=== PATIENT | male | born 1980 | race Two or more races ===

== ENCOUNTER 2019-09-24 12:12 | Emergency (ER) | payer OTHER ==
[~2019-09-24] VITALS: Ht 170.2 cm; Wt 88.5 kg
--- NOTE | 2019-09-24 12:29 | NUR ---
PT IS A/OX4, PRESENTS TO THE ER C/O PALPITATIONS THAT BEGAN YESTERDAY. PT STATES HE WAS AT A CLINIC TODAY AND C/O PALPITATIONS AND THE CLINIC CALLED 911 FOR TRANSFER TO ED TO RULE OUT AMI. PT STATES THE CHEST PRESSURE BEGAN YESTERDAY WHILE HE WAS SITTING, NON-PROVOKED, PRESSURE-LIKE, DOES NOT RADIATE, 4/10, CONSTANT. VSS. PT DENIES SOB, N/V/D, DIZZINESS, HEADACHE. SKIN IS DRY, WARM TO TOUCH, RESPIRATIONS EVEN AND UNLABORED. ER MD AT BEDSIDE FOR MSE.
[2019-09-24 12:57] LABS: BASOPHILS # (AUTO) 0.1 K/uL (0.0-8.0); BASOPHILS % (AUTO) 0.7 % (0.0-2.0); EOSINOPHILS % (AUTO) 0.3 % (0.0-7.0); HEMATOCRIT 47.9 % (36.7-47.1); HEMOGLOBIN 16.2 g/dL (12.5-16.3); LYMPHOCYTES # (AUTO) 2.3 K/uL (20.0-40.0); LYMPHOCYTES % (AUTO) 18.7 % (20.5-51.5); MEAN CORPUSCULAR HEMOGLOBIN 28.5 uug (23.8-33.4); MEAN CORPUSCULAR HGB CONC 34 g/dL (32.5-36.3); MEAN CORPUSCULAR VOLUME 84.6 fL (73.0-96.2); MONOCYTES # (AUTO) 0.8 K/uL (2.0-10.0); MONOCYTES % (AUTO) 6.6 % (0.0-11.0); NEUTROPHILS # (AUTO) 8.9 K/uL (1.8-8.9); NEUTROPHILS % (AUTO) 73.7 % (38.5-71.5); PLATELET COUNT (AUTO) 367 K/uL (152-348); RED BLOOD CELL COUNT(AUTO) 5.67 MIL/uL (4.06-5.63); WHITE BLOOD COUNT (AUTO) 12.1 K/uL (3.6-10.2)
[2019-09-24 13:00] LABS: CREATININE 0.9 mg/dL (0.6-1.3); POTASSIUM 3.9 mmol/L (3.5-5.1)
[2019-09-24 13:23] VITALS: BP 131/86
--- NOTE | 2019-09-24 13:23 | NUR ---
Patient discharged to home in stable conditon. Written and verbal after care instructions given. Patient verbalizes understanding of instructions. ALL BELONGINGS W/ PT. PT SELF-AMBULATED W/O DIFFICULTY.
== END 2019-09-24 13:29 | disposition home or self-care (01) ==
LOC: ER 12:12
DX: R00.2 Palpitations (principal); I10 Essential (primary) hypertension; E78.5 Hyperlipidemia, unspecified; Z60.2 Problems related to living alone
CPT/HCPCS: 36415; 70030-TC; 85025; 93005; A4663